=== PATIENT | female | born 1970 | race African-American/Black ===

== ENCOUNTER 2020-02-22 15:40 | Outpatient (CLI) | payer BC, SELFPAY ==
--- NOTE | ~2020-02-22 | XR_ITS ---
EXAMINATION: XR shoulder LT min 2V EXAM DATE: 02/22/2020 16:31 INDICATION: No known recent injury provided at this time. Pain of the left shoulder. TECHNIQUE: The following left shoulder projections obtained: frontal projection with internal rotatio n, frontal projection with external rotation, Grashey, and scapular Y view (4+ views). There is no p rior study for comparison. FINDINGS: There is acromioclavicular osteolysis. Differential diagnosis includes hyperparathyroidism, rheumatoid arthritis, scleroderma, posttraumatic finding (repetitive microtrauma eg. weight lifting) . There are no acute fractures or dislocations identified. There is no subcutaneous gas. The soft t issue is unremarkable. There are no radiopaque foreign bodies. Glenohumeral joint is unremarkable. IMPRESSION: Acromioclavicular joint osteolysis. Reviewed, dictated and finalized at location A.
--- NOTE | ~2020-02-22 | XR_ITS ---
EXAMINATION: XR hip LT min 2V EXAM DATE: 02/22/2020 16:31 INDICATION: No known recent injury provided at this time. Pain of the left hip. TECHNIQUE: Left hip frontal, 'frog leg' projections for interpretation. There is no prior study for c omparison. FINDINGS: Smooth left hip femoral head contour, no radiographic evidence of avascular necrosis. Ther e are no acute fractures or dislocations identified. There is no subcutaneous gas. The soft tissue is unremarkable. There are no radiopaque foreign bodies. IMPRESSION: 1. Unremarkable XR hip LT min 2V exam. Reviewed, dictated and finalized at location A.
== END 2020-02-22 15:41 | disposition home or self-care (01) ==
PROVIDERS: PCP Family Medicine; Visit Provider Family Medicine
DX: M89.512 Osteolysis, left shoulder (principal); M25.512 Pain in left shoulder; M25.552 Pain in left hip
CPT/HCPCS: 73030; 73502

== ENCOUNTER 2020-05-19 16:11 | Outpatient (CLI) | payer BC, SELFPAY ==
--- NOTE | ~2020-05-19 | MM_ITS ---
EXAMINATION: MM screening nory BI w jean HISTORY: Screening TECHNIQUE: Craniocaudal and mediolateral oblique 3-D tomosynthesis images were obtained and synthetic 2-D images were generated. CAD analysis was submitted and interpreted. COMPARISON: No prior mammogram is available for comparison at this institution. BREAST PARENCHYMAL COMPOSITION: There are scattered areas of fibroglandular density. FINDINGS: There is no evidence of suspicious mass, calcification, or architectural distortion to sugg est malignancy in either breast. There has been no suspicious interval change. IMPRESSION: 1. No mammographic evidence of malignancy. 2. Recommend routine screening mammography in one year. BI-RADS Category 1: Negative Reviewed, dictated and finalized at location A.
== END 2020-05-19 16:12 | disposition home or self-care (01) ==
LOC: ANHIMG 16:12
PROVIDERS: PCP Family Medicine; Visit Provider Physician Assistant
DX: Z12.31 Encounter for screening mammogram for malignant neoplasm of breast (principal)
CPT/HCPCS: 77063; 77067

== ENCOUNTER 2020-06-11 07:53 | Outpatient (CLI) | payer BC, SELFPAY ==
--- NOTE | ~2020-06-11 | XR_ITS ---
XR foot LT standing 2V DATE: 06/11/2020 09:08 INDICATION: Abnormal immunological findings in the serum TECHNIQUE: Standing AP and lateral views COMPARISON: None FINDINGS: There is slight plantar calcaneal enthesopathy. No fracture, dislocation, periosteal reaction or bone destruction, joint space narrowing, erosive brendan nge. IMPRESSION: Slight plantar calcaneal enthesopathy Reviewed, dictated and finalized at location A.
--- NOTE | ~2020-06-11 | XR_ITS ---
XR hand BI arthritis min 3V DATE: 06/11/2020 09:08 INDICATION: Osteoarthritis. Hand pain. TECHNIQUE: 4 views of each hand COMPARISON: None FINDINGS: No fracture or dislocation, periosteal reaction or bone destruction. There is mild osteoarthritic spurring at the interphalangeal joint of the left first digit. No erosive change or chondrocalcinosis. IMPRESSION: Mild osteoarthritis at the interphalangeal joint of the first digit Reviewed, dictated and finalized at location A.
--- NOTE | ~2020-06-11 | XR_ITS ---
XR foot RT standing 2V DATE: 06/11/2020 09:08 INDICATION: Abnormal immunological findings in the serum TECHNIQUE: Standing AP and lateral views COMPARISON: None FINDINGS: No fracture or dislocation, periosteal reaction or bone destruction. IMPRESSION: Negative Reviewed, dictated and finalized at location A. IMPRESSION: Negative
--- NOTE | ~2020-06-11 | MR_ITS ---
EXAMINATION: MR shoulder LT wo con DATE: 06/11/2020 08:54 INDICATION: Left shoulder pain. TECHNIQUE: Magnetic resonance imaging (MRI) of the left shoulder was performed without intravenous co ntrast. Sequences included axial PD-weighted FS FSE, coronal oblique PD-weighted FS FSE and T2-weight ed FS FSE, and sagittal oblique T2-weighted FS FSE and T1-weighted FSE. COMPARISON: Left shoulder radiograph 02/22/2020 FINDINGS: Coracoacromial arch: The acromion undersurface is curved in morphology (type II). There is moderate acromioclavicular join t osteoarthritis including inferiorly directed osteophytes. There is mild subacromial/subdeltoid burs itis. Rotator cuff: There is mild supraspinatus and infraspinatus tendinopathy. Teres minor and subscapularis tendons are normal. There is no asymmetric fatty atrophy of the rotator cuff muscle bellies. Biceps tendon and glenoid labrum: Biceps tendon is in bicipital groove. There is mild intra-articular biceps tendinopathy. The glenoid labrum is normal. Fluid: There is no glenohumeral joint effusion. Bones/cartilage: There is cartilage surface irregularity of glenoid. Humeral head cartilage is normal. There are tiny osteophytes. IMPRESSION: 1. Mild glenoid chondrosis. 2. Mild rotator cuff tendinopathy. No tear. 3. Mild subacromial/subdeltoid bursitis. 4. Mild intra-articular biceps tendinopathy. 5. Moderate acromioclavicular joint osteoarthritis. Reviewed, dictated and finalized at location A.
== END 2020-06-11 07:54 | disposition home or self-care (01) ==
PROVIDERS: PCP Family Medicine; Visit Provider Internal Medicine
DX: G89.29 Other chronic pain (principal); M19.041 Primary osteoarthritis, right hand; M19.042 Primary osteoarthritis, left hand; M77.32 Calcaneal spur, left foot; M19.012 Primary osteoarthritis, left shoulder; M75.52 Bursitis of left shoulder
CPT/HCPCS: 73130; 73221; 73620

== ENCOUNTER 2020-11-09 08:17 | Outpatient (NON) | payer BC, SELFPAY ==
[2020-11-09 22:15] LABS: SARS-CoV-2 RNA PCR Negative
== END 2020-11-09 08:18 ==
PROVIDERS: PCP Family Medicine; Visit Provider Physician Assistant
DX: Z20.822 Contact with and (suspected) exposure to COVID-19 (principal)
CPT/HCPCS: C9803; U0003; U0005

== ENCOUNTER 2021-06-23 07:48 | Outpatient (CLI) | payer BC, SELFPAY ==
--- NOTE | ~2021-06-23 | MM_ITS ---
EXAMINATION: MM screening nory BI w jean HISTORY: Screening mammogram TECHNIQUE: Craniocaudal and mediolateral oblique 3-D tomosynthesis images were obtained and synthetic 2-D images were generated. CAD analysis was submitted and interpreted. COMPARISON: 05/19/2020 BREAST PARENCHYMAL COMPOSITION: There are scattered areas of fibroglandular density. FINDINGS: There is no evidence of suspicious mass, calcification, or architectural distortion to sugg est malignancy in either breast. There has been no suspicious interval change. IMPRESSION: 1. No mammographic evidence of malignancy. 2. Recommend routine screening mammography in one year. BI-RADS Category 1: Negative Reviewed, dictated and finalized at location A.
== END 2021-06-23 07:49 | disposition home or self-care (01) ==
LOC: ANHIMG 07:54
PROVIDERS: PCP Family Medicine; Visit Provider Family Medicine
DX: Z12.31 Encounter for screening mammogram for malignant neoplasm of breast (principal)
CPT/HCPCS: 77063; 77067

== ENCOUNTER → 2021-11-18 09:42 | Outpatient (CLI) | payer BC, SELFPAY ==
[2021-11-18 20:22] LABS: SARS-CoV-2 RNA PCR Negative
[2021-11-20 00:38] LABS: Influenza A QL RT-PCR Negative (Negative); Influenza B QL RT-PCR Negative (Negative)
== END ==
PROVIDERS: PCP Family Medicine; Visit Provider Family Medicine
DX: J34.89 Other specified disorders of nose and nasal sinuses (principal); R68.89 Other general symptoms and signs; Z20.822 Contact with and (suspected) exposure to COVID-19
CPT/HCPCS: 87502; C9803; U0003; U0005

== ENCOUNTER → 2021-12-07 00:46 | Outpatient (CLI) | payer BC, SELFPAY ==
[2021-12-07 12:58] LABS: Influenza A QL RT-PCR Negative (Negative); Influenza B QL RT-PCR Negative (Negative); SARS-CoV-2 RNA PCR Negative
== END ==
PROVIDERS: PCP Family Medicine; Visit Provider Physician Assistant
DX: R68.89 Other general symptoms and signs (principal); Z20.822 Contact with and (suspected) exposure to COVID-19
CPT/HCPCS: 87502; C9803; U0003; U0005

== ENCOUNTER 2022-04-27 09:05 | Outpatient (CLI) | payer BC, SELFPAY ==
--- NOTE | ~2022-04-27 | XR_ITS ---
XR shoulder RT min 2V DATE: 04/27/2022 09:21 INDICATION: Right shoulder pain TECHNIQUE: 4 views COMPARISON: None FINDINGS: No fracture or dislocation, periosteal reaction or bone destruction or abnormal soft tissue calcification. IMPRESSION: Negative Reviewed, dictated and finalized at location A. IMPRESSION: Negative
== END 2022-04-27 09:06 | disposition home or self-care (01) ==
LOC: ANHIMG 09:07
PROVIDERS: PCP Family Medicine; Visit Provider Physician Assistant
DX: M25.511 Pain in right shoulder (principal)
CPT/HCPCS: 73030

== ENCOUNTER 2022-07-06 09:31 | Outpatient (CLI) | payer BC, SELFPAY ==
--- NOTE | ~2022-07-06 | MR_ITS ---
EXAMINATION: MR shoulder RT wo con DATE: 07/06/2022 10:07 INDICATION: Right shoulder pain TECHNIQUE: Magnetic resonance imaging (MRI) of the right shoulder was performed without intravenous c ontrast. Sequences included axial PD-weighted FS FSE, coronal oblique PD-weighted FS FSE, coronal obl ique T2-weighted FS FSE, sagittal PD-weighted FS FSE, and sagittal T1-weighted SE. COMPARISON: None. FINDINGS: Coracoacromial arch: The acromion undersurface is curved in morphology (type II). Small anterior subacromial spur at the a cromial insertion of the normal coracoacromial ligament. Mild acromioclavicular osteoarthritis. Rotator cuff: Mild supraspinatus tendinopathy without discrete tear. The infraspinatus, teres minor and subscapular is tendons are normal. Normal rotator cuff muscle bulk and signal. Biceps tendon, glenoid labrum and glenohumeral cartilage: Long head of the biceps tendon is normal. Glenoid labrum is normal. Mild partial-thickness cartilage loss with smooth chondral surface at the glenoid and inferomedial and cephalad aspect of the humeral head. Fluid: Increased fluid in the long head biceps tendon sheath which is disproportionate to the physiologic am ount of fluid in the glenohumeral joint space consistent with mild bicipital tenosynovitis.. No loos e osteochondral bodies. Small amount of fluid in the subacromial/subdeltoid bursa consistent with mil d bursitis. Bones: Normal marrow signal with no edema, fracture or abnormal marrow replacing process. Mild cystic change at the greater tuberosity. IMPRESSION: 1. Mild supraspinatus tendinopathy without discrete tear. 2. Mild subacromial/subdeltoid bursitis. 3. Mild bicipital tenosynovitis with normal long head biceps tendon. Reviewed, dictated and finalized at location A.
== END 2022-07-06 09:32 | disposition home or self-care (01) ==
LOC: ANHIMG 09:33
PROVIDERS: PCP Family Medicine; Visit Provider Orthopaedic Surgery
DX: M75.51 Bursitis of right shoulder (principal); M75.21 Bicipital tendinitis, right shoulder
CPT/HCPCS: 73221

== ENCOUNTER 2022-07-25 08:58 | Outpatient (CLI) | payer BC, SELFPAY ==
--- NOTE | ~2022-07-25 | MM_ITS ---
EXAMINATION: MM screening nory BI w jean HISTORY: Screening mammogram TECHNIQUE: Craniocaudal and mediolateral oblique 3-D tomosynthesis images were obtained and synthetic 2-D images were generated. CAD analysis was submitted and interpreted. COMPARISON: 06/23/2021, 05/19/2020 bilateral screening mammogram examinations BREAST PARENCHYMAL COMPOSITION: The breasts are almost entirely fatty. FINDINGS: There is no evidence of suspicious mass, calcification, or architectural distortion to sugg est malignancy in either breast. There has been no suspicious interval change. IMPRESSION: 1. No mammographic evidence of malignancy. 2. Recommend routine screening mammography in one year. BI-RADS Category 1: Negative Reviewed, dictated and finalized at location A.
== END 2022-07-25 08:59 | disposition home or self-care (01) ==
LOC: ANHIMG 09:00
PROVIDERS: PCP Family Medicine; Visit Provider Physician Assistant
DX: Z12.31 Encounter for screening mammogram for malignant neoplasm of breast (principal)
CPT/HCPCS: 77063; 77067

== ENCOUNTER 2022-11-09 09:44 | Outpatient (CLI) | payer BC, SELFPAY ==
--- NOTE | ~2022-11-09 | US_ITS ---
EXAMINATION: US pelvic complete w TV DATE: 11/09/2022 10:46 INDICATION: Abnormal uterine and vaginal bleeding, unspecified. TECHNIQUE: Multiple transabdominal and transvaginal sonographic images of the pelvis were obtained. COMPARISON: None. FINDINGS: TRANSABDOMINAL ULTRASOUND: The uterus measures 8.9 x 4.0 x 4.2 cm. There is no free fluid in the pelvis. TRANSVAGINAL ULTRASOUND: The endometrial complex measures 7 mm in thickness. The right ovary measures 2.4 x 1.6 x 1.1 cm. The left ovary is not visualized. IMPRESSION: 1. Thickened endometrial complex. The differential diagnosis includes endometrial hyperplasia, polyp, and carcinoma. Biopsy is recommended. Reviewed, dictated and finalized at location A. CHASER IMPRESSION: 1. Thickened endometrial complex. The differential diagnosis includes endometri al hyperplasia, polyp, and carcinoma. Biopsy is recommended.
[2022-11-09 11:18] LABS: Basophils Absolute Auto 0.1 K/mm3 (0.0-0.1); Basophils Percent Auto 0.7 % (0.2-1.2); Eosinophils Absolute Auto 0.1 K/mm3 (0-0.3); Eosinophils Percent Auto 1.4 % (0-4.4); Hematocrit 39.8 % (37.0-47.0); Hemoglobin 12.2 g/dL (12.0-15.0); Immature Granulocyte Absolute 0.01 K/mm3 (0.00-0.031); Immature Granulocyte Percent A 0.1 % (0-0.5); Lymphocytes Absolute Auto 2.08 K/mm3 (0.9-3.2); Lymphocytes Percent Auto 29.9 % (18.3-44.2); Mean Corpuscular HGB Conc 30.7 g/dl (32-36); Mean Corpuscular Hemoglobin 25.4 pg (26-34); Mean Corpuscular Volume 82.9 fl (80-100); Mean Platelet Volume 9.1 fl (7.4-10.4); Monocytes Absolute Auto 0.6 K/mm3 (0.1-0.6); Monocytes Percent Auto 9.2 % (2.6-8.5); Neutrophils Absolute Auto 4.1 K/mm3 (1.3-6.7); Neutrophils Percent Auto 58.7 % (45.5-73.1); Platelet Count Result 288 k/mm3 (150-375); Red Cell Distribution Width 13.8 % (11.5-14.5)
== END 2022-11-09 09:45 | disposition home or self-care (01) ==
PROVIDERS: PCP Family Medicine; Visit Provider Physician Assistant
DX: N93.9 Abnormal uterine and vaginal bleeding, unspecified (principal); R58 Hemorrhage, not elsewhere classified
CPT/HCPCS: 36415; 76830; 76856; 85025

== ENCOUNTER 2022-11-22 11:06 | Outpatient (CLI) | payer BC, SELFPAY ==
[2022-11-22 11:50] LABS: Anion Gap 3 mmol/L (8-16); Blood Urea Nitrogen 14 mg/dL (7-17); Calcium 8.7 mg/dL (8.4-10.2); Carbon Dioxide 31 mmol/L (22-30); Chloride 101 mmol/L (98-107); Estimated Glomerular Filt Rate > 60; Glucose 98 mg/dL (65-110); Potassium 3.5 mmol/L (3.4-5.0); Sodium 135 mmol/L (137-145)
== END 2022-11-22 11:07 | disposition home or self-care (01) ==
PROVIDERS: Anesthesiology; PCP Family Medicine; Visit Provider Obstetrics & Gynecology Gynecology
DX: Z79.899 Other long term (current) drug therapy (principal)
CPT/HCPCS: 36415; 80048

== ENCOUNTER 2022-12-03 00:52 | Day surgery (SDC) | payer BC, SELFPAY ==
[2022-11-21 15:36] VITALS: BMI 50.9
--- NOTE | 2022-11-21 15:41 | PC.NURSE ---
Report to the Outpatient Waiting Room, entrance under the green pavilion located off [facility], at time 11:15 on date 12/03/22. Planned Procedure Time: 1:15. Time changes happen often and if your time is changed the preop area will call you the afternoon before. - You and your visitor will be asked to self-screen and do not enter if you have any COVID symptoms. - Only one visitor is requested with a max of two and NO children visitors are allowed at this time. - The patient visitor may be requested to leave or wait in car when not with patient due to distancing restrictions. - A mask is optional within the hospital at this time. Patients may have clear liquids (water, carbonated beverages, clear teas, apple juice) until 3 hours prior to surgery (10:15) with a maximum of 20 ounces. - No food from midnight until time of surgery Take the following medications with a SIP of water the morning of surgery: TRINTELLIX, LORAZEPAM DO NOT STOP ANY OF YOUR OTHER PRESCRIPTION MEDICATIONS PRIOR TO SURGERY EXCEPT THE FOLLOWING Medications to discontinue per physician: VITAMINS/SUPPLEMENTS Date to take last dose: 11/29/22 Please no make-up, nail czech, hairspray, perfume, deodorant, or body powder the day of surgery. No jewelry (including any body piercings) or valuables the day of surgery, leave them at home. Please take a shower or bath the night before, or the morning of, surgery with an antibacterial soap. Wear comfortable, loose fitting clothing. Children are encouraged to wear pajamas. - Jewelry must be removed prior to entering the operating room. Rings and piercings that are not removed may be cut off. - The hospital will not accept responsibility for valuables. - Please leave all valuables, including medications, at home the day of surgery. If you are going home after surgery, a licensed tour driver must drive you home. - NO public transportation without another adult if you receive anesthesia. - We recommend that an adult stay with you for 24 hours following discharge. - We also recommend that you do not drive, make important decision, drink alcoholic beverages, or take any drugs that were not prescribed by your health care provider for at least 24 hours after your discharge time. For Pediatric surgeries, we recommend two adults accompany the child home. Follow any additional instructions given to you from your surgeon. If you or anyone in your household have experienced Covid symptoms in the past week, please notify your surgeon or the nurse liaison at the phone number below for possible testing. Telephone instructions given to and asked if any additional questions and then verbalized understanding. Patient advised to call surgeon office or pre surgery nurse liaison [phone] if any additional questions.
--- NOTE | 2022-12-03 10:05 | WPDHPUPDATE1 ---
History and Physical Update Update Date/Time: 12/03/22 10:05 History and Physical has been reviewed, including an updated exam of the patient. There are NO changes in the patient's condition. Risks, benefits, and alternatives have been discussed and questions answered. Patient agrees to proceed with procedure.
--- NOTE | 2022-12-03 10:05 | PM.HPGS ---
History of Present Illness History of Present Illness Consent: Risks, benefits, and alternatives have been discussed and questions answered. Patient agrees to proceed with procedure. Chief complaint: post menopausal bleeding Narrative: Tara Reyes is a 52 year old female with postmenopausal bleeding. Patient underwent last menstrual cycle approximately 2011. Patient pelvic ultrasound reveals a thickened endometrium at 7mm. It was recommended to proceed with D&C hysteroscopy. Risks of infection, bleeding, perforation, and possible pathology are reviewed. Patient voices understanding and agrees to proceed. Review of Systems Review of Systems: not repeated day of surgery; patient states no changes in status PMFSH Past Medical History Medical History (Updated 12/03/22 @ 10:10 by Enriqueta Hanks MD) Depression Hyperlipidemia Hypertension Inflammatory arthritis (~01/2020) Super obesity Surgical History Surgical History (Updated 12/03/22 @ 10:09 by Enriqueta Hanks MD) H/O section (~1997) Hx of cholecystectomy Family History Family History Mother Diabetes mellitus Hypertension Father Hypertension Heart attack Grandparent Kidney failure Social History Social History Smoking packs per day: 0.75 Smoking cigarettes per day: 15.0 Years smoked: 20 Smoking pack-years: 15.00 Smoking status: Former smoker Tobacco type: cigarettes Second hand tobacco smoke exposure: No Smoking end date: 10/28/09 Alcohol intake: never Substance use: never Substance use type: does not use Lack of Transportation: No Lack of Food: Never True Current Housing: I Have Housing Concerned About Future Housing: No Difficulty Paying Gas/Electric Bills: No Difficulty Paying for Meds: No Currently Unemployed: No Education: Master's Degree or Higher Difficulty w/ Childcare or Family Care: No Living arrangements: with family Occupation/Education: occupation Gender identity (if verbalized by the patient): Female Sexual Orientation (if Verbalized by the Patient): Straight or Heterosexual Spiritual care concerns: No Meds Home Medications and Allergies Home Medications Medication Instructions Recorded Confirmed Type multivitamin 1 tablet PO DAILY 05/31/20 11/21/22 History loratadine 10 mg tablet (Claritin) 10 mg PO DAILY PRN Allergy 11/14/20 11/21/22 Rx Symptoms #90 tabs epinephrine 0.3 mg/0.3 mL 0.3 mg (0.3 mL) IM ONCE #2 ea 03/07/22 11/21/22 Rx injection, auto-injector biotin 1 mg capsule 1 mg PO DAILY 06/18/22 11/21/22 History vortioxetine 20 mg tablet 20 mg PO DAILY #90 tabs 10/26/22 11/21/22 Rx hydrochlorothiazide 25 mg tablet 25 mg PO DAILY #90 tabs 11/06/22 11/21/22 Rx lorazepam 0.5 mg tablet (Ativan) 0.5 mg PO TID PRN anxiety #30 tabs 11/06/22 11/21/22 Rx Allergies Allergy/AdvReac Type Severity Reaction Status Date / Time tramadol AdvReac Mild Abdominal Verified 11/06/22 11:33 Pain Macrolide Antibiotics AdvReac Unknown Gastrointestinal Verified 11/21/22 15:33 Upset latex AdvReac Blister Verified 11/21/22 15:34 Exam Const: General: healthy appearing, alert and obese (330 lbs) Orientation/consciousness: patient oriented x3 Resp: Effort & Inspection: normal respiratory effort GI: GI Palp: Yes Soft to palpation, No Tenderness to palpation present (GI) and No Palpable mass present : External Female Exam: normal external appearance Speculum Exam - Vagina: normal appearance of the vagina and normal vaginal discharge Speculum Exam - Cervix: normal appearance of the cervix Bimanual exam- vagina & uterus: uterine size normal and consistency normal Bimanual Exam- Adnexa, other: normal adnexae and No adnexal tenderness Neuro: General: patient oriented x3 Assessment and Plan Assessment and plan (1) Post-menopausal bleeding:
[2022-12-03] MEDS: ACETAMINOPHEN 500 MG TABLET 1000 MG PO (11:41)
[2022-12-03 11:42] VITALS: BP 133/80; PULSE 84; RESP 20; TEMP 36.4; O2SAT 100
[2022-12-03] MEDS: LACTATED RINGERS 1,000 ML 30 ML IV CONT (12:00)
--- NOTE | 2022-12-03 12:23 | WPDANESEPPF ---
Anes - Initial Pre Proc Eval Procedure: Operation Date: 12/03/22 13:15 Proposed Procedures p Hysteroscopy, Dilation and Curettage - Enriqueta Hanks MD Date/Time: 12/03/22 12:23 Surgeon: Enriqueta Hanks MD Pre Op Diagnosis: post menopausal bleeding Patient Data Age: 52 Gender: F Height: 1.7 m Weight: 150 kg Last Vital Signs Temp 36.4 C L 12/03/22 11:42 Pulse 84 12/03/22 11:42 Resp 20 12/03/22 11:42 BP 133/80 12/03/22 11:42 Pulse Ox 100 12/03/22 11:42 O2 Del Method Room Air 12/03/22 11:42 Allergies Allergy/AdvReac Type Severity Reaction Status Date / Time tramadol AdvReac Mild Abdominal Verified 12/03/22 11:34 Pain Macrolide Antibiotics AdvReac Unknown Gastrointestinal Verified 12/03/22 11:34 Upset latex AdvReac Blister Verified 12/03/22 11:34 Home Medications Medication Instructions Recorded Confirmed Type multivitamin 1 tablet PO DAILY 05/31/20 12/03/22 History loratadine 10 mg tablet (Claritin) 10 mg PO DAILY PRN Allergy 11/14/20 12/03/22 Rx Symptoms #90 tabs epinephrine 0.3 mg/0.3 mL 0.3 mg (0.3 mL) IM ONCE #2 ea 03/07/22 11/21/22 Rx injection, auto-injector biotin 1 mg capsule 1 mg PO DAILY 06/18/22 12/03/22 History vortioxetine 20 mg tablet 20 mg PO DAILY #90 tabs 10/26/22 12/03/22 Rx hydrochlorothiazide 25 mg tablet 25 mg PO DAILY #90 tabs 11/06/22 12/03/22 Rx lorazepam 0.5 mg tablet (Ativan) 0.5 mg PO TID PRN anxiety #30 tabs 11/06/22 12/03/22 Rx Patient hx anesthesia problems: none Family hx anesthesia problems: none Results Review: All pre-operative results and documents have been reviewed as part of the pre-operative evaluation. [facility] Past Medical History Medical History Depression Hyperlipidemia Hypertension Inflammatory arthritis (~01/2020) Super obesity Surgical History Surgical History H/O section (~1997) Hx of cholecystectomy Family History Family History Mother Diabetes mellitus Hypertension Father Hypertension Heart attack Grandparent Kidney failure Social History Social History Smoking packs per day: 0.75 Smoking cigarettes per day: 15.0 Years smoked: 20 Smoking pack-years: 15.00 Smoking status: Former smoker Tobacco type: cigarettes Second hand tobacco smoke exposure: No Smoking end date: 10/28/09 Alcohol intake: never Substance use: never Substance use type: does not use Lack of Transportation: No Lack of Food: Never True Current Housing: I Have Housing Concerned About Future Housing: No Difficulty Paying Gas/Electric Bills: No Difficulty Paying for Meds: No Currently Unemployed: No Education: Master's Degree or Higher Difficulty w/ Childcare or Family Care: No Living arrangements: with family Occupation/Education: occupation Gender identity (if verbalized by the patient): Female Sexual Orientation (if Verbalized by the Patient): Straight or Heterosexual Spiritual care concerns: No Anes - Eval Final PreProcedure Day of Procedure 12/03/22 12:23 Patient weight: super morbidly obese Heart: regular rate and rhythm Lungs: clear to auscultation Airway: Mallampati scale class II Neurological: alert and oriented Last oral intake: >/= 8 hours ASA classification: III Emergent: no Anesthetic plan: proceed Anesthesia type and monitoring: general GIVS and standard monitoring Results Review: All pre-operative results and documents have been reviewed as part of the pre-operative evaluation. Informed Consent: The patient's anesthetic plan and its attendant risks and benefits were discussed with the patient/family/POA. Questions were solicited and answers provided to the satisfaction of the patient/family/POA.
[2022-12-03] MEDS: LIDOCAINE HCL 1% PF 30 ML VIAL 10 ML INFILTRATE (12:53)
[2022-12-03 13:03] VITALS: BP 81/55; PULSE 75; RESP 16; O2SAT 96
--- NOTE | 2022-12-03 13:10 | W.PM.PROC2 ---
Procedure Note - Detailed Date of Procedure 12/03/22 Pre-op Diagnosis post menopausal bleeding Post-op Diagnosis Same Procedure Performed D&C hysteroscopy Surgeon Enriqueta Hanks MD Anesthesia MAC and Local Findings cervix is stenotic; uterus sounds to 8cm and appears grossly narrow and atrophic Description of Procedure The patient was taken to the operating room and placed under anesthesia in the dorsal lithotomy position. She was prepped and draped in the usual sterile fashion. [place] speculum was placed in the vagina and the cervix grasped on the anterior lip with a tenaculum. The cervix is injected in each quadrant with 1% lidocaine. The sound is placed and unable to pass the internal os. The os Finders are used and are not successful followed by the small dilator which was again not successful the os Finders again used and the internal os is able to be breached. The cervix was dilated to a 5 Hegar. The hysteroscope was placed with the above-stated findings. The hysteroscope was removed and the sharp curette used to curette the endometrium until a good uterine cry was noted in all areas. Minimal material was obtained consistent with the atrophic appearance. All instruments were removed the patient is awakened from anesthesia and taken to recovery in stable condition. Sponge, needle, and instrument counts are correct per the OR staff. Estimated Blood Loss -5.0 Drains No Packing No Pathology Yes ( Endometrial curettings) Complications No immediate complications Condition Stable Disposition PACU
[2022-12-03 13:30] VITALS: BP 107/87; PULSE 72; RESP 16; O2SAT 100
[2022-12-03] MEDS: oxyCODONE HCL (*CRX) 5 MG TAB IR PO (13:40)
[2022-12-03 14:00] VITALS: BP 128/71; PULSE 63; RESP 16
[2022-12-03] MEDS: KETOROLAC 30 MG/ML VIAL (*BKC) IV PUSH (14:25)
[2022-12-03 14:30] VITALS: BP 137/71; PULSE 75; RESP 14
[2022-12-03 14:45] VITALS: BP 127/76; PULSE 62; RESP 14
== END 2022-12-03 14:52 | disposition home or self-care (01) ==
PROVIDERS: PCP Family Medicine; Visit Provider Obstetrics & Gynecology Gynecology
PROC: 0U5B8ZZ Destruction of Endometrium, Via Natural or Artificial Opening Endoscopic (ICD-10-PCS; CPT 58563; principal; 2022-12-03 13:15)
DX: N95.0 Postmenopausal bleeding (principal); I10 Essential (primary) hypertension; E78.5 Hyperlipidemia, unspecified; F32.A Depression, unspecified; E66.01 Morbid (severe) obesity due to excess calories; Z68.43 Body mass index [BMI] 50.0-59.9, adult; Z87.891 Personal history of nicotine dependence
CPT/HCPCS: 58558; 88305; A9270; J1885; J2250; J2405; J2704; J3010; J7120

== ENCOUNTER 2023-08-28 08:29 | Outpatient (CLI) | payer BC, SELFPAY ==
--- NOTE | ~2023-08-28 | DEXA_ITS ---
Bone Density Report Name: OLIVER DEWITT Age: 53 Sex: Female Ethnicity: White Date of : 1970 Indication: postmenopausal; screening for osteoporosis; height loss; rheumatoid arthritis; Referring Provider: SHERYL JONES Study: Bone densitometry was performed. Exam Date: August 28, 2023 Accession number: [id number] Bone Density: Region BMD T-score Z-score Classification AP Spine(L1-L4) 1.227 1.6 2.7 Normal Femoral Neck (Left) 0.975 1.1 2.2 Normal Total Hip (Left) 1.104 1.3 2.0 Normal Femoral Neck (Right) 0.870 0.2 1.3 Normal Total Hip (Right) 0.985 0.4 1.1 Normal Total Hip Mean 1.045 0.9 1.6 Normal World Health Organization criteria for BMD impression classify patients as: Normal (T-score at or above -1.0), Osteopenia (T-score between -1.0 and -2.5), or Osteoporosis (T-score at or below -2.5). 10-year Fracture Risk: FRAX not reported because: All T-scores for Spine Total, Hip Total, Femoral Neck at or above -1.0 Clinical Information Provided by Patient: Has rheumatoid arthritis Has used the following medications: Vitamin D Patient maximum height was 67 Menopause Age: 36 No regular weight bearing exercise Onset of menses at age 8 Number of children 1 Impression: The patient has normal bone mass. Discussion: BONE DENSITY IS ABOVE THE MINIMUM DESIRABLE LEVEL AT ALL SKELETAL SITES TESTED. This patient?s bone mineral density is above the minimum desirable level (T-score -1.0 or better) at all sites measured. The patient should follow a healthful lifestyle (good nutrition with adequate calcium and vitamin D, and appropriate weight-bearing exercise). Follow-Up: Consider repeating this study in 5 years or sooner if there is some new clinical indication. Reported by: [facility] on 08/28/2023 9:04:00 AM. Reviewed, dictated and finalized at location ACam JETER
--- NOTE | ~2023-08-28 | MM_ITS ---
EXAMINATION: MM screening [facility] w jean HISTORY: Screening mammogram TECHNIQUE: Craniocaudal and mediolateral oblique 3-D tomosynthesis images were obtained and synthetic 2-D images were generated. CAD analysis was submitted and interpreted. COMPARISON: 07/25/2022, 06/23/2021, 05/19/2020 BREAST PARENCHYMAL COMPOSITION: There are scattered areas of fibroglandular density. FINDINGS: No suspicious mass, calcification, or architectural distortion are identified in either hernán ast to suggest malignancy. There has been no suspicious interval change. IMPRESSION: 1. No mammographic evidence of malignancy. 2. Recommend routine screening mammography in one year. BI-RADS Category 1: Negative Reviewed, dictated and finalized at location A.
== END 2023-08-28 08:30 | disposition home or self-care (01) ==
LOC: ANHIMG 08:31
PROVIDERS: PCP Family Medicine; Visit Provider Physician Assistant
DX: Z12.31 Encounter for screening mammogram for malignant neoplasm of breast (principal); Z78.0 Asymptomatic menopausal state
CPT/HCPCS: 77063; 77067; 77080

== ENCOUNTER 2024-12-25 00:36 | Day surgery (SDC) | payer BC, SELFPAY ==
[2024-12-14 09:57] VITALS: BMI 35.3
[2024-12-25 06:48] VITALS: BP 109/72; PULSE 80; RESP 16; TEMP 35.8; O2SAT 99
[2024-12-25] MEDS: LACTATED RINGERS 1,000 ML 150 ML IV CONT (07:01)
--- NOTE | 2024-12-25 07:25 | WPDANESEPPF ---
Anes - Initial Pre Proc Eval Procedure: Operation Date: 12/25/24 08:00 Proposed Procedures p Screening Colonoscopy - Juanpablo Damico MD Date/Time: 12/25/24 07:25 Surgeon: Juanpablo Damico MD Pre Op Diagnosis: hx colon polyps Patient Data Age: 54 Gender: F Height: 1.7 m Weight: 102.25 kg Last Vital Signs Temp 35.8 C L 12/25/24 06:48 Pulse 80 12/25/24 06:48 Resp 16 12/25/24 06:48 BP 109/72 12/25/24 06:48 Pulse Ox 99 12/25/24 06:48 Allergies Allergy/AdvReac Type Severity Reaction Status Date / Time cantaloupe Allergy Unknown Swelling Verified 12/25/24 06:45 tramadol AdvReac Mild Abdominal Verified 12/25/24 06:45 Pain Macrolide Antibiotics AdvReac Unknown Gastrointestinal Verified 12/25/24 06:45 Upset latex AdvReac Rash Verified 12/25/24 06:45 Home Medications ?Medication ?Instructions ?Recorded ?Confirmed ?Type multivitamin 1 tablet PO DAILY 05/31/20 12/25/24 History epinephrine 0.3 mg/0.3 mL 0.3 mg (0.3 mL) IM ONCE #2 ea 03/07/22 12/14/24 Rx injection, auto-injector progesterone micronized 200 mg 200 mg PO QHS #1 cap 04/24/23 12/25/24 Rx capsule tirzepatide (weight loss) 15 15 mg (0.5 mL) subcut WEEKLY #2 mL 08/18/24 12/25/24 Rx mg/0.5 mL subcutaneous pen injector vortioxetine 20 mg tablet 20 mg PO DAILY #30 tabs 08/25/24 12/25/24 Rx lorazepam 0.5 mg tablet (Ativan) 0.5 mg PO TID PRN anxiety #10 tabs 11/06/24 12/14/24 Rx cholecalciferol (vitamin D3) 10 20 mcg PO ONCE 12/14/24 12/25/24 History mcg (400 unit) capsule (Vitamin D3) hydrochlorothiazide 25 mg tablet 25 mg PO DAILY 12/14/24 12/25/24 History loratadine 10 mg tablet (Claritin) 10 mg PO DAILY Allergy Symptoms 12/14/24 12/25/24 History nystatin 100,000 unit/gram topical 1 applic topical TID PRN rash 12/14/24 12/14/24 History powder Patient hx anesthesia problems: none Family hx anesthesia problems: none Results Review: All pre-operative results and documents have been reviewed as part of the pre-operative evaluation. [facility] Past Medical History Medical History Hyperlipidemia Inflammatory arthritis (~01/2020) Super obesity Depression Hypertension Surgical History Surgical History Hx of cholecystectomy H/O section (~1997) Family History Family History Mother Diabetes mellitus Hypertension Father Hypertension Heart attack Grandparent Kidney failure Social History Social History (Updated 11/06/24 @ 09:15 by Julieta Sousa MA) Smoking packs per day: 0 Smoking cigarettes per day: 0.0 Years smoked: 20 Smoking pack-years: 0.00 Smoking status: Former smoker Tobacco type: cigarettes Second hand tobacco smoke exposure: No Smoking end date: 10/28/09 Alcohol intake: never Substance use: never Substance use type: does not use Do You Feel Safe in your Home?: Yes Lack of Transportation: No Lack of Food: Never True Current Housing: I Have Housing Concerned About Future Housing: No Difficulty Paying Gas/Electric Bills: No Difficulty Paying for Meds: No Currently Unemployed: No Education: Master's Degree or Higher Difficulty w/ Childcare or Family Care: No Living arrangements: with family Occupation/Education: occupation Gender identity (if verbalized by the patient): Female Sexual Orientation (if Verbalized by the Patient): Straight or Heterosexual Spiritual care concerns: No Anes - Eval Final PreProcedure Day of Procedure 12/25/24 07:25 Patient weight: obese Heart: regular rate and rhythm Lungs: clear to auscultation Airway: Mallampati scale class II Neurological: alert and oriented Last oral intake: >/= 8 hours ASA classification: III Emergent: no Anesthetic plan: proceed Anesthesia type and monitoring: general GIVS and standard monitoring Results Review: All pre-operative results and documents have been reviewed as part of the pre-operative evaluation. Informed Consent: The patient's anesthetic plan and its attendant risks and benefits were discussed with the patient/family/POA. Questions were solicited and answers provided to the satisfaction of the patient/family/POA.
--- NOTE | 2024-12-25 07:52 | PM.HPGS ---
History of Present Illness History of Present Illness Consent: Risks, benefits, and alternatives have been discussed and questions answered. Patient agrees to proceed with procedure. Chief complaint: hx colon polyps Narrative: Tara Reyes is a 54 year old female with colon polyp in 2019 Review of Systems Review of Systems: All systems reviewed & are unremarkable except as noted in HPI and below PMFSH Past Medical History Medical History (Updated 12/25/24 @ 07:53 by Juanpablo Damico MD) Colon polyp Hyperlipidemia Inflammatory arthritis (~01/2020) Super obesity Depression Hypertension Surgical History Surgical History Hx of cholecystectomy H/O section (~1997) Family History Family History Mother Diabetes mellitus Hypertension Father Hypertension Heart attack Grandparent Kidney failure Social History Social History (Updated 11/06/24 @ 09:15 by Julieta Sousa MA) Smoking packs per day: 0 Smoking cigarettes per day: 0.0 Years smoked: 20 Smoking pack-years: 0.00 Smoking status: Former smoker Tobacco type: cigarettes Second hand tobacco smoke exposure: No Smoking end date: 10/28/09 Alcohol intake: never Substance use: never Substance use type: does not use Do You Feel Safe in your Home?: Yes Lack of Transportation: No Lack of Food: Never True Current Housing: I Have Housing Concerned About Future Housing: No Difficulty Paying Gas/Electric Bills: No Difficulty Paying for Meds: No Currently Unemployed: No Education: Master's Degree or Higher Difficulty w/ Childcare or Family Care: No Living arrangements: with family Occupation/Education: occupation Gender identity (if verbalized by the patient): Female Sexual Orientation (if Verbalized by the Patient): Straight or Heterosexual Spiritual care concerns: No Meds Home Medications and Allergies Home Medications ?Medication ?Instructions ?Recorded ?Confirmed ?Type multivitamin 1 tablet PO DAILY 05/31/20 12/25/24 History epinephrine 0.3 mg/0.3 mL 0.3 mg (0.3 mL) IM ONCE #2 ea 03/07/22 12/14/24 Rx injection, auto-injector progesterone micronized 200 mg 200 mg PO QHS #1 cap 04/24/23 12/25/24 Rx capsule tirzepatide (weight loss) 15 15 mg (0.5 mL) subcut WEEKLY #2 mL 08/18/24 12/25/24 Rx mg/0.5 mL subcutaneous pen injector vortioxetine 20 mg tablet 20 mg PO DAILY #30 tabs 08/25/24 12/25/24 Rx lorazepam 0.5 mg tablet (Ativan) 0.5 mg PO TID PRN anxiety #10 tabs 11/06/24 12/14/24 Rx cholecalciferol (vitamin D3) 10 20 mcg PO ONCE 12/14/24 12/25/24 History mcg (400 unit) capsule (Vitamin D3) hydrochlorothiazide 25 mg tablet 25 mg PO DAILY 12/14/24 12/25/24 History loratadine 10 mg tablet (Claritin) 10 mg PO DAILY Allergy Symptoms 12/14/24 12/25/24 History nystatin 100,000 unit/gram topical 1 applic topical TID PRN rash 12/14/24 12/14/24 History powder Allergies Allergy/AdvReac Type Severity Reaction Status Date / Time cantaloupe Allergy Unknown Swelling Verified 12/25/24 06:45 tramadol AdvReac Mild Abdominal Verified 12/25/24 06:45 Pain Macrolide Antibiotics AdvReac Unknown Gastrointestinal Verified 12/25/24 06:45 Upset latex AdvReac Rash Verified 12/25/24 06:45 Vital Signs Vital Signs - 24 hr 12/25/24 06:48 Temperature 96.5 F L Pulse Rate 80 Respiratory Rate 16 Blood Pressure 109/72 Pulse Oximetry 99 Exam Const: General: comfortable and no acute distress HENMT: Face/Nose/Sinus: Normal nares present Eyes: General: appearance normal, both eyes and all related structures Neck: Neck: no JVD Resp: Auscultation: clear to auscultation bilaterally Cardio: Rate: regular rate Rhythm: regular rhythm GI: Inspection: non-distended GI Palp: Yes Soft to palpation Skin: General skin exam: normal color Neuro: General: gait normal Speech: normal speech Extrem: General: normal to inspection Psych: Mental Status: mental status grossly normal Assessment and Plan Assessment and plan (1) Colon polyp: Code(s): K63.5 - Polyp of colon Status: Acute Assessment and Plan: colonoscopy
[2024-12-25 08:09] VITALS: BP 94/62; PULSE 70; RESP 16; O2SAT 98
[2024-12-25 08:19] VITALS: BP 103/69; PULSE 65; RESP 21; O2SAT 96
[2024-12-25 08:29] VITALS: BP 108/83; PULSE 64; RESP 17; O2SAT 100
== END 2024-12-25 08:39 | disposition home or self-care (01) ==
PROVIDERS: PCP Family Medicine; Referring Provider Physician Assistant Medical; Visit Provider Internal Medicine Gastroenterology
PROC: 0DJD8ZZ Inspection of Lower Intestinal Tract, Via Natural or Artificial Opening Endoscopic (ICD-10-PCS; CPT 45378; principal; 2024-12-25 08:00)
DX: Z12.11 Encounter for screening for malignant neoplasm of colon (principal); K64.8 Other hemorrhoids; K57.30 Diverticulosis of large intestine without perforation or abscess without bleeding; E78.5 Hyperlipidemia, unspecified; I10 Essential (primary) hypertension; F32.A Depression, unspecified; M06.4 Inflammatory polyarthropathy; E66.9 Obesity, unspecified; Z68.35 Body mass index [BMI] 35.0-35.9, adult; Z79.85 Long-term (current) use of injectable non-insulin antidiabetic drugs; Z98.890 Other specified postprocedural states; Z90.49 Acquired absence of other specified parts of digestive tract; Z87.891 Personal history of nicotine dependence; Z86.0100 Personal history of colon polyps, unspecified; Z82.49 Family history of ischemic heart disease and other diseases of the circulatory system
CPT/HCPCS: 45378; J2003; J2704; J7120

== ENCOUNTER 2025-04-20 07:37 | Outpatient (CLI) | payer BC, SELFPAY ==
--- NOTE | ~2025-04-20 | CT_ITS ---
CT soft tissue neck w con Ordering provider: Estlea Pearson PA-C History: 55 years Female with . R submandibular lymph node enlargement, bilat neck swelling, . Comparison: None. Technique: CT soft tissues neck was performed with contrast. . Automated exposure control and iterat lion reconstruction technique were employed. The dose-length product was 437.22 mGy-cm. 75 mL Omnipaqu e 350 was given IV. Surrounding Findings: LOWER HEAD: The visualized brain parenchyma, optic globes/orbits and mastoids are normal. The visua lized paranasal sinuses are well aerated. SALIVARY GLANDS: Dilated ducts in the right submandibular gland with no definite stones seen in the d uct which raises the possibility of sialoadenitis although no fat stranding seen around the gland. No definite stones seen along the adductor longus is slightly clinical correlation and follow-up advise d. Other glands are unremarkable. THYROID: Normal. SUPRAHYOID DEEP SPACES: Normal. CAROTID ARTERIES: Normal. JUGULAR VEINS: Normal. TONSILS: Normal. ORAL CAVITY: Partially obscured by dental amalgam but normal as visualized. PHARYNX, LARYNX AND TRACHEA: Patent and normal. No prevertebral soft tissue swelling. SUPERFICIAL SOFT TISSUES: Normal. No lymphadenopathy or neck mass. THORACIC INLET/VISUALIZED UPPER CHEST: Normal. SKELETAL: Age appropriate degenerative changes. IMPRESSION: Dilated ducts in the right submandibular gland with no definite stones. Sialoadenitis is possible. Ot herwise, Normal CT neck. Reviewed, dictated and finalized at location A. IMPRESSION: Dilated ducts in the right submandibular gland with no definite stones. Siaload enitis is possible. Otherwise, Normal CT neck.
== END 2025-04-20 07:38 | disposition home or self-care (01) ==
PROVIDERS: PCP Family Medicine; Visit Provider Physician Assistant Medical
DX: R59.9 Enlarged lymph nodes, unspecified (principal)
CPT/HCPCS: 70491; Q9967

== ENCOUNTER 2025-09-02 11:57 | Outpatient (CLI) | payer BC, SELFPAY ==
--- OUTSIDE RECORDS SUMMARY | 2024-11-19 11:30 | XMS_ITS ---
Author Organization [facility] ([address]) Address [address] [place] [address] Care Team Providers Care Pony Rougher Name Role Phone Onel Lassiter MD Primary Care Provider Concetta Wheat [phone] REASON FOR VISIT Chronic upper airway symptoms concerning for uncontrolled atopic disease- SPT blunted last visit. Here to review labs, Oral itching with tomato and cantaloupe - also reporting gland and frenulum swelling after eating cantaloupe Medications Medication SIG (Take, Route, Frequency, Duration) Notes Start Date End Date Status Zepbound 12.5 MG/0.5ML 0.5 mL Subcutaneous Active hydroCHLOROthiazide 25 MG 1 tablet in th e morning Orally Once a day Active Trintellix 20 MG 1 tablet Orally Once a day Active Ipratropium [place] 0.06 % 2 sprays in each nostril Nasally Four times a day; Duration: 30 days As needed Active Vitamin D 50 MCG (1999) 1 capsule Ora lly Once a day Active Claritin 10 MG 1 tablet Orally Once a day Active Encounters Encounter Location Date Provider Diagnosis [facility] [address] [place] [address] 11/19/2024 Concetta Ross Hypertrophy of nasal turbinates J34.3 ; Chronic rhinitis J31.0 and Dermatitis due to ingested food L27.2 Assessments Encounter Date Diagnosis (ICD Code) Assessment Notes Treatment Notes Treatment Clinical Notes Section Notes 11/19/2024 Hypertrophy of nasal turbinates (ICD-10 - J34.3) Given the history and symptoms, skin testing was performed last visit to common aeroallergens to determine atopic status. Histamine control blunted and testing negative, likely due to medications. -ImmunoCaps negative. Wants to return off meds x 2 weeks for SPT -suspect HIGINIO. Trial Ipratropium nasal 11/19/2024 Chronic rhinitis (ICD-10 - J31.0) See plan above 11/19/2024 Dermatitis due to ingested food (ICD-10 - L27.2) Tara's description of symptoms with cantaloupe and tomato seem typical and atypical of OAS. Await blood test, may be due to cross-reactivity of pollen -testing negative 11/19/2024 Other Plan Of Treatment Medication Medication Name Sig Start Date Stop Date Notes Ipratropium [place] 0.06 % 2 sprays in e ach nostril Nasally Four times a day; Duration: 30 days Treatment Notes Assessment Notes Hypertrophy of nasal turbinates Given the history and symptoms, skin testing was performed last visit to common aeroallergens to determine atopic status. Histamine control blunted and testing negative, likely due to medications. -ImmunoCaps negative. Wants to return off meds x 2 weeks for SPT -suspect HIGINIO. Trial Ipratropium nasal Chronic rhinitis See plan above Dermatitis due to ingested food Tara's description of symptoms with cantaloupe and tomato seem typical and atypical of OAS. Await blood test, may be due to cross-reactivity of pollen -testing negative Next Appt Details Follow Up: 4 Weeks, Reason: Evaluation and Management, Skin testing Progress Notes * Tara REYESDOB:1970 ([age] yo F)Acc No.[id number]:11/19/2024 Skin Testing Patient: Tara BRAGG Provider: Sandra Ross PA-C :1970 A ge:54 Y S ex:Female Date:11/19/2024 Address:[address] [place], [place] [id number] Pcp:Onel Lassiter MD Subjective: * Chief Complaints: * 1 . Chronic upper airway symptoms concerning for uncontrolled atopic disease- SPT blunted last visit. Here to review labs. 2. Oral itching with tomato and cantaloupe - also reporting gland and frenulum swelling after eating cantaloupe. * HPI: * Introduction: HPI: Adry Reyes a 54 year-old AA female with a history of HTN, dysthmic disorder, and obesity here today for allergy evaluation and management. Tara was alone for today's visit. Descriptors of her upper airways symptoms are outlined below. Seen last month. SPT was blunted. Here to review labs. Still with drainage. She reports upper airway symptoms since she moved here in [place] in 2007 from [place]. Admits to sneezing, runny nose, PND, ears clogged, and watery eyes. Has been taking Clartin for 4-5 years. No seasonal variation in symptoms. She denies any recurrent infections, sinus imaging, or ENT evaluation. S he also has concerns for food allergy. Previously she consumed peanuts throughout her life. In early she had diffuse hives after eating peanuts. Avoided for years then the last few years reintroduced w/o reaction. She also avoids cantaloupe and tomato as it causes mild itching of mouth. She recently had under the tongue and gland swelling on and off a week she was consuming cantaloupe. No systemic symptoms reported. 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 , lives with . Lifetime non-smoker. She has no pets. She works from home part-time. No outdoor hobbies. . She denies a history of physician-diagnosed allergic rhinitis, recurrent sinusitis or otitis media, recurrent pneumonia, asthma/RAD, eczema, food allergies, urticaria/angioedema, medication allergies, contact dermatitis, latex allergy, eosinophilic esophagitis or stinging insect hypersensitivity. Today, she reports no fevers, chills, night sweats or other constitutional symptoms. * ROS: A LLERGY: Positive p er the HPI and history, otherwise unremarkable.?scratchy throat Y es. i tchy eyes Y es. e ar fullness Y es. s inus congestion Y es. S PECIAL SENSES: Positve for n one. c ataracts N o. g laucoma?No. l oss of hearing Y es. i tching in ears N o. r inging in ears Y es.?loss of balance N o. l oss of smell N o. d ry eyes N o. e xcessive tearing N o. i tching eyes N o. l oss of taste N o. c onjunctivitis N o. e ar infections N o. C ONSTITUTIONAL: weight gain Y es. l oss of appetite Y es. f ever N o. w eakness Y es. w eight loss Y es. f atigue Y es. n ight sweats N o. P ositive for n one. E NT: cold N o. c ough N o. e pistaxis N o. h earing loss Y es. c hange in voice N o. s ore throat N o. r inging in ears?Yes. s inus pain N o. P ositive p er the HPI and history, otherwise unremarkable. R ESPIRATORY: shortness of breath N o. c hest pain N o. c hest congestion N o. c ough N o. P ositive p er the HPI and history, otherwise unremakable. O PHTHALMOLOGY: diminished vision Y es. e ye irritation N o. d rainage from eyes N o. b lurring of vision Y es. s easonal eye sx N o. P ositive for p er the HPI and history, otherwise unremarkable. i tching N o. s ensitivity to light Y es. d ischarge N o. w atering N o. s welling of the eyelids?No. r edness N o. E NDOCRINOLOGY: fatigue Y es. p olydipsia N o. p olyuria Y es. w eight loss N o. s leep disturbance Y es. c old intolerance N o. h eat intolerance N o. d iabetes N o. P ositive for n one. C ARDIOLOGY: chest pain N o. p alpitations N o. l eg edema?Yes. d izziness Y es. s hortness of breath N o. P ositive for n one.? G ASTROENTEROLOGY: dysphagia N o. a bdominal pain N o. n ausea?Yes. v omiting N o. c onstipation Y es. d iarrhea N o. b lood in stool?No. i ndigestion N o. h emorrhoids Y es. P ositive for n one. ? U ROLOGY: difficulty urinating N o. b lood in urine N o. f requent urination Y es. u rinary incontinence N o. r ecurrent UTI N o. P ositive for n one. D ERMATOLOGY: rash N o. m ole N o. l umps N o. d ry or sensitive skin Y es. h everett (urticaria) N o. a cne N o. s kin cancer N o. P ositive for p er the HPI and history, otherwise unremakable. N EUROLOGY: headache N o. t ingling numbness N o. s eizures?No. i nsomnia Y es. m kavita loss Y es,No. d izziness Y es. g ait abnormality N o. P ositive for n one. H EMATOLOGY/LYMPH: Positive for n one. M USCULOSKELETAL: joint swelling N o. j oint pain N o. l eg cramps N o. j oint stiffness Y es. s ciatica N o. o steoporosis N o. f racture N o. c arpal tunnel N o. g out N o. P ositive for n one. ? P SYCHOLOGY: high stress level Y es. d epression Y es. s leep disturbances N o. s uicidal ideation N o. e ating disorder N o. m ental or physical abuse N o. a nxiety Y es. P ositive for n one. F EMALE REPRODUCTIVE: heavy periods N o. h ot flashes N o. a bnormal vaginal discharge N o. s exually active Y es. i nfertility N o. f requent yeat infections N o. p elvic pain N o. b reast pain N o. n ipple discharge No. A re you ? N o. A re you planning on a future pregancy? N o. ? A ll other review of systems per the HPI and history, otherwise unremarkable. * Medical History: * Medications: T aking Claritin 10 MG Tablet 1 tablet Orally Once a day , Taking Vitamin D 50 MCG (1999 [place]) Capsule 1 capsule Orally Once a day , Taking Trintellix 20 MG Tablet 1 tablet Orally Once a day , Taking hydroCHLOROthiazide 25 MG Tablet 1 tablet in the morning Orally Once a day , Taking Zepbound 12.5 MG/0.5ML Solution Auto-injector 0.5 mL Subcutaneous , Taking Ipratropium [place] 0.06 % Solution 2 sprays in each nostril Nasally Four times a day As needed Objective: * Vitals: * Examination: G eneral examination: General appearance: p leasant, well-developed, well-nourished. HEENT: p upils equal, round, and reactive to light and accommodation, conjunctiva are clear bilaterally, no tenderness to palpation of the sinuses, TM's without evidence of acute infection, turbinates 2+ swollen and pale inferiorly bilaterally, clear rhinorrhea is present, no polyps noted, no septal perforation, posterior oropharynx is erythematous and cobblestoning is present, erythema on pharyngeal wall, no exudates, no tongue swelling, and uvula is midline. Oral cavity: n ormal, no lesions. Neck, thyroid : s upple, non-tender, no anterior cervical lymphadenopathy. Breasts : n ot performed. Heart: R RR, S1-S2, no murmurs, no rubs, no gallops. Lungs: c lear to auscultation and percussion in all lung dominguez, no wheezes or crackles. Neurologic exam: u nremarkable. Skin: n ormal, no rash, dermatographism, urticaria, angioedema. Peripheral pulses: n ormal (2+) bilaterally. Back: n ormal. Extremities: n ormal ROM, no clubbing, no cyanosis, no edema. Genitalia: n ot performed. Assessment: * Assessment: 1. H ypertrophy of nasal turbinates - J34.3 (Primary) 2 . C hronic rhinitis - J31.0 3 . D ermatitis due to ingested food - L27.2 Plan: * Treatment: 2. C hronic rhinitis Start Ipratropium [place] Solution, 0.06 %, 2 sprays in each nostril, Nasally, Four times a day As needed, 30 days, 1, Refills 3. Notes: See plan above 3. D ermatitis due to ingested food Notes: Tara's description of symptoms with cantaloupe and tomato seem typical and atypical of OAS. Await blood test, may be due to cross-reactivity of pollen -testing negative * Procedure Codes: G 8427 DOC MEDS VERIFIED W/PT OR RE * Preventive Medicine: Counseling: M edication instruction: W atch for side effects of prescribed medications, Nasal steroid/antihistamine instruction: avoid septum. E ducation: G ENERAL EDUCATION: Our staff spent an additional 30 minutes in direct contact with the patient educating them on their current diagnoses and proper treatment and prevention of symptoms and the proper use of medications. E ducation 2: A RC EDUCATION: Our staff discussed the appropriate allergen avoidance measures and medication utilization including upper airway hygiene with daily nasal washes given the patient's clinical status and diagnoses. SCIT EDUCATION: Discussed allergy immunotherapy including the relative risks, benefits and alternatives to this treatment as an adjunctive measure to current therapy, Allergy Immunotherapy: Risks: bleeding, infection, allergic reaction, anaphylaxis = severe allergic reaction that can cause ; Benefits: reduced need for medications, improved symptoms, disease modification. Alternatives: watch/wait, change medication regimen, improve allergy avoidance measures, Our staff discussed the warning signs of anaphylaxis and the indications to use self-injectable epinephrine and seek urgent or emergent care. P atient education material sent to portal? Y es * Follow Up: 4 Weeks (Reason: Evaluation and Management, Skin testing) * Billing Information: * Visit Code: 78692 Office Visit, New Pt., Level 3. Modifiers: 25 * Procedure Codes: G8427 DOC MEDS VERIFIED W/PT OR RE. * Electronic signature of Kevin Ross PA-C, MPAS on 09/02/2025 at 07:22 PM ASSOCIATE DENTIST Sign off status: Pending * Provider: Sandra Ross PA-C Date: 0 11/19/2024 Generated for Mariposa oHoks/Alondra on: 11/02/2024 07:22 PM ASSOCIATE DENTIST History and Physical Notes * HPI (History of Present Illness) Category Sub-Category Detail Notes Category Not es *Introduction HPI: Tara Reyes a 54 year-old AA female with a history of HTN, dysthmic disorder, and obesity here today for allergy evaluation and management. Tara was alone for today's visit. Descriptors of her upper airways symptoms are outlined below. Seen last month. SPT was blunted. Here to review labs. Still with drainage. She reports upper airway symptoms since she moved here in [place] in 2007 from [place]. Admits to sneezing, runny nose, PND, ears clogged, and watery eyes. Has been taking Clartin for 4-5 years. No seasonal variation in symptoms. She denies any recurrent infections, sinus imaging, or ENT evaluation. She also has concerns for food allergy. Previously she consumed peanuts throughout her life. In early she had diffuse hives after eating peanuts. Avoided for years then the last few years reintroduced w/o reaction. She also avoids cantaloupe and tomato as it causes mild itching of mouth. She recently had under the tongue and gland swelling on and off a week she was consuming cantaloupe. No systemic symptoms reported. 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 , lives with . Lifetime non-smoker. She has no pets. She works from home part-time. No outdoor hobbies. . She denies a history of physician-diagnosed allergic rhinitis, recurrent sinusitis or otitis media, recurrent pneumonia, asthma/RAD, eczema, food allergies, urticaria/angioedema, medication allergies, contact dermatitis, latex allergy, eosinophilic esophagitis or stinging insect hypersensitivity. Today, she reports no fevers, chills, night sweats or other constitutional symptoms Examination Category Sub-Category Detail Notes Category Not es General examination HEENT: pupils equal , round, and reactive to light and accommodation, conjunctiva are clear bilaterally, no tenderness to palpation of the sinuses, TM's without evidence of acute infection, turbinates 2+ swollen and pale inferiorly bilaterally, clear rhinorrhea is present, no polyps noted, no septal perforation, posterior oropharynx is erythematous and cobblestoning is present, erythema on pharyngeal wall, no exudates, no tongue swelling, and uvula is midline Neck, thyroid : supple, non-tender, no anterior cervical lymphadenopathy Heart: RRR, S1-S2, no murmu rs, no rubs, no gallops Lungs: clear to auscultatio n and percussion in all lung dominguez, no wheezes or crackles Abdomen: Extremities: normal ROM, no clubb ing, no cyanosis, no edema General appearance: pleasant, well-devel oped, well-nourished Skin: normal, no rash, juma matographism, urticaria, angioedema Neurologic exam: unremarkable Oral cavity: normal, no lesions Breasts : not performed Peripheral pulses: normal (2+) bilatera lly Back: normal Genitalia: not performed
--- OUTSIDE RECORDS SUMMARY | 2024-12-03 11:30 | XMS_ITS ---
Author Organization [facility] ([address]) Address [address] [place] [address] Care Team Providers Care Nailhead Operator Name Role Phone Onel Lassiter MD Primary Care Provider Concetta Wheat [phone] REASON FOR VISIT Chronic upper airway symptoms concerning for uncontrolled atopic disease- SPT blunted last visit. Here to review labs, Oral itching with tomato and cantaloupe - also reporting gland and frenulum swelling after eating cantaloupe Medications Medication SIG (Take, Route, Frequency, Duration) Notes Start Date End Date Status Vitamin D 50 MCG (1999) 1 capsule Ora lly Once a day Active hydroCHLOROthiazide 25 MG 1 tablet in th e morning Orally Once a day Active Trintellix 20 MG 1 tablet Orally Once a day Active Ipratropium [place] 0.06 % 2 sprays in each nostril Nasally Four times a day; Duration: 30 days As needed Active Zepbound 12.5 MG/0.5ML 0.5 mL Subcutaneous Active Claritin 10 MG 1 tablet Orally Once a day Active Encounters Encounter Location Date Provider Diagnosis [facility] [address] [place] [address] 12/03/2024 Concetta Ross Hypertrophy of nasal turbinates J34.3 ; Chronic rhinitis J31.0 and Dermatitis due to ingested food L27.2 Assessments Encounter Date Diagnosis (ICD Code) Assessment Notes Treatment Notes Treatment Clinical Notes Section Notes 12/03/2024 Hypertrophy of nasal turbinates (ICD-10 - J34.3) Given the history and symptoms, skin testing was performed last visit to common aeroallergens to determine atopic status. Histamine control blunted and testing negative, likely due to medications. -ImmunoCaps negative. Wants to return off meds x 2 weeks for SPT -suspect HIGINIO. Trial Ipratropium nasal 12/03/2024 Chronic rhinitis (ICD-10 - J31.0) See plan above 12/03/2024 Dermatitis due to ingested food (ICD-10 - L27.2) Tara's description of symptoms with cantaloupe and tomato seem typical and atypical of OAS. Await blood test, may be due to cross-reactivity of pollen -testing negative 12/03/2024 Other Plan Of Treatment Medication Medication Name Sig Start Date Stop Date Notes Ipratropium [place] 0.06 % 2 sprays in e ach [...] * Tara REYESDOB:1970 ([age] yo F)Acc No.[id number]:12/03/2024 Skin Testing Patient: Tara BRAGG Provider: Sandra Ross PA-C :1970 A ge:54 Y S ex:Female Date:12/03/2024 Address:[address] [place], [place] [id number] Pcp:Onel Lassiter MD Subjective: * Chief Complaints: [...] airway symptoms since she moved here in [place] in 2007 from [place]. Admits to sneezing, runny nose, PND, ears [...] Auto-injector 0.5 mL Subcutaneous , Taking Ipratropium [place] 0.06 % Solution 2 sprays in each [...] Treatment: 2. C hronic rhinitis Start Ipratropium [place] Solution, 0.06 %, 2 sprays in each [...] testing) * Billing Information: * Visit Code: 29571 Office Visit, New Pt., Level 3. Modifiers: 25 * Procedure Codes: G8427 DOC MEDS VERIFIED W/PT OR RE. * Electronic signature of Kevin Ross PA-C, MPAS on 09/02/2025 at 07:22 PM AUDIENCE DEVELOPMENT MANAGER Sign off status: Pending * Provider: Sandra Ross PA-C Date: 0 12/03/2024 Generated for Mariposa Hooks/Alondra on: 1 11/02/2024 07:22 PM AUDIENCE DEVELOPMENT MANAGER History and Physical Notes * HPI (History [...] airway symptoms since she moved here in [place] in 2007 from [place]. Admits to sneezing, runny nose, PND, ears [...]
--- OUTSIDE RECORDS SUMMARY | 2025-01-14 11:30 | XMS_ITS ---
Author Organization [facility] ([address]) Address [address] [place] [address] Care Team Providers Care Track Maintainer Name Role Phone Onel Lassiter MD Primary Care Provider Concetta Wheat [phone] REASON FOR VISIT Skin testing Encounters Encounter Location Date Provider Diagnosis [facility] [address] [place] [address] 01/14/2025 Concetta Ross Plan Of Treatment No Information Progress Notes * Tara REYESDOB:1970 ([age] yo F)Acc No.[id number]:01/14/2025 Skin Testing Patient: Tara BRAGG Provider: Sandra Ross PA-C :1970 A ge:54 Y S ex:Female Date:01/14/2025 Address:[address] [place], [place] [id number] Pcp:Onel Lassiter MD Subjective: * Chief Complaints: * 1 . Skin testing. * Medical History: Objective: * Vitals: Assessment: Plan: * Treatment: * Billing Information: * Visit Code: * Procedure Codes: * Electronic signature of Kevin Ross PA-C [facility] on 09/02/2025 at 07:22 PM BRAND PROTECTION MANAGER Sign off status: Pending * Provider: Sandra Ross PA-C Date: 0 01/14/2025 Generated for Mariposa ramirez/Magalis/Alondra on: 1 11/02/2024 07:22 PM BRAND PROTECTION MANAGER
--- NOTE | ~2025-09-02 | MM_ITS ---
EXAMINATION: MM screening nory BI w jean HISTORY: Screening TECHNIQUE: Craniocaudal and mediolateral oblique 3-D tomosynthesis images were obtained and synthetic 2-D images were generated. CAD analysis was submitted and interpreted. COMPARISON: Comparison to multiple prior studies sequentially, with oldest reviewed study dated , 05/19/2020 BREAST PARENCHYMAL COMPOSITION: The breasts are almost entirely fatty. FINDINGS: There is no evidence of suspicious mass, calcification, or architectural distortion to suggest malignancy in either breast. IMPRESSION: 1. No mammographic evidence of malignancy. 2. Recommend routine screening mammography in one year. BI-RADS Category 1: Negative Reviewed, dictated and finalized at location B. [facility]
--- OUTSIDE RECORDS SUMMARY | 2025-09-02 19:22 | XMS_ITS | Clinical Summary ---
Author Organization [facility] Address [address] [place] [address] Care Team Providers Care Line Service Person Name Role Phone Onel Lassiter MD Primary Care Provider [phone] Source Comments [facility],non-owned Affiliates and Associated Physician Practices is amultiple site organization consisting of ambulatory clinics and hospital sitesin [place], [place], [place]. This disclosure is being madepursuant to the Care Everywhere program and may not contain all information available regarding this patient. Last updated 18.[facility] Allergies Active Allergy Reactions Criticality Noted Date Comments Erythromycin GI Discomfort Low 06/26/2016 Medications * Be aware that medications may not be up to date on this document. Alwaysverify current medications with the patient. Sertraline HCl (ZOLOFT PO) Active fluticasone propionate (FLONASE) 50 MCG/ACT nasal spray Vera 1 Vera into each nostril 2 times daily 1 Bottle 0 06/26/2016 Active Family History Medical History Relation Name Comments Hypertension Father Diabetes Mother Hypertension Mother Relation Name Status Comments Father Mother Social History Tobacco Use Types Packs/Day Years Used Date Smoking Tobacco: Never Comments Unknown Sex and Gender Information Value Date Recorded Sex Assigned at Not on file Legal Sex Female 9:50 AM CDT Gender Identity Not on file Sexual Orientation Not on file Last Filed Vital Signs Vital Sign Reading Time Taken Comments Blood Pressure 118/68 06/26/2016 1:51 PM CDT Pulse 68 06/26/2016 1:51 PM CDT Temperature 37.4 C (99.3 F) 06/26/2016 1:51 PM CDT Respiratory Rate - - Oxygen Saturation - - Inhaled Oxygen Concentration - - Weight 83.9 kg (185 lb) 06/26/2016 1:51 PM CDT Height 170.2 cm (5' 7) 06/26/2016 1:51 PM CDT Body Mass Index 28.98 06/26/2016 1:51 PM CDT Plan of Treatment Health Maintenance Due Date Last Done Comments COLOGUARD (AGES 45-75) - COL ON CA SCREENING 1970 COLON MONITORING 1970 COLONOSCOPY - COLON CA SCREENING 1968 CT COLONOGRAPHY - COLON CA SCREENING 1970 Colorectal Cancer Screening 1970 FIT - COLON CA SCREENING 1970 FLEX SIG - COLON CA SCREENING 1970 LIPID TESTING 1970 MAMMOGRAM 1970 HIV SCREENING 02/14/1983 HEPATITIS C SCREENING 02/10/1986 DTAP/TDAP/TD VACCINES (1 - Tdap) 02/14/1987 HEPATITIS B VACCINE (1 of 3 - 19+ 3-dose series) 02/14/1987 PNEUMOCOCCAL VACCINE 50+ (1 of 1 - PCV) 02/14/2018 ZOSTER VACCINE (1 of 2) 02/14/2018 DEPRESSION SCREENING 10/28/2024 COVID-19 VACCINE (1 - 2023-2 5 season) 2025 INFLUENZA VACCINE (#1) 2025 HIB VACCINE Aged Out No longer eligi ble based on patient's age to complete this topic HPV VACCINE Aged Out No longer eligi ble based on patient's age to complete this topic MENINGOCOCCAL (Group B) VACC INE SHARED DECISION-MAKING Aged Out No longer eligibl e based on patient's age to complete this topic MENINGOCOCCAL GROUPS A/C/Y/W VACCINE Aged Out No longer eligible b ased on patient's age to complete this topic Insurance ANTHEM Care Teams Line Service Person Relationship Specialty Start Date End Date Onel Lassiter MD [address] [place] [address] PCP - General 12/20/22
--- OUTSIDE RECORDS SUMMARY | 2025-09-02 19:22 | XMS_ITS | Patient Health Record ---
Author Organization [facility] ([address]) Address [address] [place] [address] Care Team Providers Care Bezel Cutter Name Role Phone Onel Lassiter MD Primary Care Provider Concetta Wheat Unavailable [phone] Allergies No Known Allergies Results Component Value Reference Range Notes INTERPRETATION Reviewed date:09/09/2024 08:21:31 AM Interpretation:Interpretation Performing Lab:[facility], [facility], [address] [place], [address] Augusto Garcia MD Notes/Report: NON-FASTING INTERPRETATION Specific Level of Allergen IGE Class kU/L Specific IGE Antibody ----- --------- 0 <0.10 Absent/Undetectable 0/1 0.10-0.34 Very Low Level 1 0.35-0.69 Low Level 2 0.70-3.49 Moderate Level 3 3.50-17.4 High Level 4 17.5-49.9 Very High Level 5 50-100 Very High Level 6 >100 Very High Level The clinical relevance of allergen results of 0.10-0.34 kU/L are undetermined and intended for specialist use. Allergens denoted with a include results using one or more analyte specific reagents. In those cases, the test was developed and its analytical performance characteristics have been determined by [facility]. It has not been cleared or approved by the U.S. Food and Drug Administration. This assay has been validated pursuant to the CLIA regulations and is used for clinical purposes. RESPIRATORY ALLERGY PROFILE REGION VIII: [place], [place] Reviewed date:09/09/2024 08:21:57 AM Interpretation:Normal Performing Lab:[place], [facility], [address], [place], [place], [address] Augusto Garcia MD Notes/Report: NON-FASTING DERMATOPHAGOIDES PTERONYSSIN US (D1) IGE <0.10 CLASS 0 DERMATOPHAGOIDES FARINAE (D2 ) IGE <0.10 CLASS 0 PENICILLIUM NOTATUM (M1) IGE <0.10 CLASS 0 CLADOSPORIUM HERBARUM (M2) IGE <0.10 CLASS 0 ASPERGILLUS FUMIGATUS (M3) IGE <0.10 CLASS 0 ALTERNARIA ALTERNATA (M6) IGE <0.10 CLASS 0 COCKROACH (I6) IGE <0.10 CLASS 0 MAPLE (BOX ELDER) (T1) IGE <0.10 CLASS 0 MOUNTAIN CEDAR (T6) IGE <0.10 CLASS 0 WALNUT TREE (T10) IGE <0.10 CLASS 0 [place] (T11) IGE <0.10 CLASS 0 COTTONWOOD (T14) IGE <0.10 CLASS 0 WHITE AARTI (T15) IGE <0.10 CLASS 0 OAK (T7) IGE <0.10 CLASS 0 ELM (T8) IGE <0.10 CLASS 0 HICKORY/PECAN TREE (T22) IGE <0.10 CLASS 0 WHITE MULBERRY (T70) IGE <0.10 CLASS 0 BERMUDA GRASS (G2) IGE <0.10 CLASS 0 MARIA ALEJANDRA GRASS (G6) IGE <0.10 CLASS 0 COMMON RAGWEED (SHORT) (W1) IGE <0.10 CLASS 0 ROUGH PIGWEED (W14) IGE <0.10 CLASS 0 MALDIVIAN THISTLE (W11) IGE <0.10 CLASS 0 ROUGH GALEANO ELDER (W16) IGE <0.10 CLASS 0 MOUSE URINE PROTEINS (E72) IGE <0.10 CLASS 0 IMMUNOGLOBULIN E 55 <ST=190 kU/L CAT DANDER (E1) IGE <0.10 CLASS 0 DOG DANDER (E5) IGE <0.10 CLASS 0 Reason For Referral Referring Provider First Name Onel Referring Provider Last Name Maikol Referring Provider Speciality Family Pra ctice Referred Organization [facility] Referred Provider Concetta Ross Referred Address [address],[place], [place],[address],[place] Referred Provider Specialty Allergy/Immu nology Referral Priority Routine Medications Medication SIG (Take, Route, Frequency, Duration) Notes Start Date End Date Status Vitamin D 50 MCG (1999) 1 capsule Ora lly Once a day Active Claritin 10 MG 1 tablet Orally Once a day Active hydroCHLOROthiazide 25 MG 1 tablet in e morning Orally Once a day Active Trintellix 20 MG 1 tablet Orally Once a day Active Ipratropium Sheldon 0.06 % 2 sprays in each nostril Nasally Four times a day; Duration: 30 days As needed Active Zepbound 12.5 MG/0.5ML 0.5 mL Subcutaneous Active Social History Tobacco Use: Social History Observation Description Date Details (start date - stop date) Former Smoker NA - NA Tobacco Control (Standard) Question Answer Notes Tobacco use: Former smoker Problems Problem Type SNOMED Code ICD Code Onset Dates Problem Status W/U Status Risk Notes Problem Chronic allergic conjunctivitis (91939633) Other chronic allergic conjunctivitis (H10.45) Active confirmed Problem Allergic rhinitis caused by pollen (disorder) (36967835) Allergic rhinitis due to pollen (J30.1) Active confirmed Problem Allergic rhinitis (00076645) Other allergic rhinitis (J30.89) Active confirmed Problem Chronic rhinitis (39184095) Chronic rhinitis (J31.0) Active confirmed Problem Hypertrophy of nasal turbinates (83310564) Hypertrophy of nasal turbinates (J34.3) Active confirmed Problem Uncomplicated mild persistent asthma (027981484) Mild persistent asthma, uncomplicated (J45.30) Active confirmed Problem Uncomplicated moderate persistent asthma (026262831) Moderate persistent asthma, uncomplicated (J45.40) Active confirmed Problem Uncomplicated severe persistent asthma (941710193) Severe persistent asthma, uncomplicated (J45.50) Active confirmed Problem Allergic rhinitis caused by animal hair and dander (180356155032490) Allergic rhinitis due to animal (cat) (dog) hair and dander (J30.81) Active confirmed Vital Signs Respiratory Rate 17 /min 09/03/2024 Blood pressure diastolic 70 mm Hg 10/01/2024 Oximetry 100 % 10/01/2024 Height 68 in 10/01/2024 Blood pressure systolic 104 mm Hg 10/01/2024 Weight 253.2 lbs 10/01/2024 BMI 38.49 kg/m2 10/01/2024 Encounters Encounter Location Date Provider Diagnosis [facility] [address] [place] [address] 10/01/2024 Concetta Ross Hypertrophy of nasal turbinates J34.3 ; Chronic rhinitis J31.0 and Dermatitis due to ingested food L27.2 [facility] [address] [place] [address] 09/03/2024 Concetta Ross Hypertrophy of nasal turbinates J34.3 ; Chronic rhinitis J31.0 and Dermatitis due to ingested food L27.2 [facility] [address] [place] [address] 12/03/2024 Concetta Ross [facility] [address] [place] [address] 09/02/2024 Concetta Ross Assessments Encounter Date Diagnosis (ICD Code) Assessment Notes Treatment Notes Treatment Clinical Notes Section Notes 09/03/2024 Chronic rhinitis (ICD-10 - J31.0) See plan above 09/03/2024 Hypertrophy of nasal turbinates (ICD-10 - J34.3) Given the history and symptoms, skin testing was performed to common aeroallergens to determine atopic status. Histamine control blunted and testing negative, likely due to medications. Ronny check ImmunoCaps and return in 4 weeks off meds for selective testing -can resume Claritin, has tried Flonase in the past which I feel would be beneficial for her. Also discussed benefits of intranasal saline rinses -await lab results before additional meds can be recommended 10/01/2024 Chronic rhinitis (ICD-10 - J31.0) See plan above 10/01/2024 Hypertrophy of nasal turbinates (ICD-10 - J34.3) Given the history and symptoms, skin testing was performed last visit to common aeroallergens to determine atopic status. Histamine control blunted and testing negative, likely due to medications. -ImmunoCaps negative. Wants to return off meds x 2 weeks for SPT -suspect HIGINIO. Trial Ipratropium nasal 10/01/2024 Dermatitis due to ingested food (ICD-10 - L27.2) Tara's description of symptoms with cantaloupe and tomato seem typical and atypical of OAS. Await blood test, may be due to cross-reactivity of pollen -testing negative 09/03/2024 Dermatitis due to ingested food (ICD-10 - L27.2) Tara's description of symptoms with cantaloupe and tomato seem typical and atypical of OAS. Await blood test, may be due to cross-reactivity of pollen 11/19/2024 Other 12/03/2024 Other 09/03/2024 Other 10/01/2024 Other Plan Of Treatment No Information Insurance Providers Payer Name Payer Address Payer Phone Subscriber Number Group Number Insured Name Patient Relationship to Insured Coverage Start Date Coverage End Date [facility] [address] [place] [address] [id number] Tara Reyes Self - patient is the insured Medical (General) History Medical History History ICD Code Essential (primary) hypertension I10 Depression, unspecified F32.A Surgical History Surgery Date(Month/Year) C Section 01/14/1998 Gall Bladder Removal 01/04/2014
== END 2025-09-02 11:58 | disposition home or self-care (01) ==
LOC: CHSIMG 11:59
PROVIDERS: PCP Family Medicine; Visit Provider Family Medicine
DX: Z12.31 Encounter for screening mammogram for malignant neoplasm of breast (principal)
CPT/HCPCS: 77063; 77067